=== PATIENT | male | born 1930 | race Caucasian/White ===

== ENCOUNTER → 2018-05-08 | Outpatient (CLI) | payer MEDICARE ==
[~2018-05-08] MED LIST: ALLO100T70 PO; ALPR-445 PO; ALPR-459 PO; AMOX-559 PO; ATEN-65 PO; AZIT-1 PO; AZIT-17 PO; CHOL200021 PO; CHOL500025 PO; CYAN1000 IM; CYAN100088 PO; CYCL10TA29 PO; DAR100 PO; DOXY-179 PO; DOXY-228 PO; FOLI-68 PO; FURO-45 PO; GABA-547 PO; GABA-549 PO; HYDR-385 PO; HYDR-393 PO; HYDR-4309 PO; IBUP-136 PO; INDO-23 PO; LEVO-85 PO; LIDO10VI16 INTRA-ART; LOR5 PO; LOR5/325 PO; LORA-629 PO; MELO-205 PO; MELO-207 PO; METH2.5T43 PO; METH4TAB66 PO; MIRT-22 PO; MIRT-27 PO; MONT10TA PO; MONT10TA4 PO; MORP-20 PO; NAPR220C12 PO; OMEP-125 PO; OMEP-137 PO; OMEP1CAP10 PO; OXYC-373 PO; OXYC-865 PO; OXYCODONE PO; PER PO; PRE10 PO; PRE5 PO; PRED-1 PO; PRED-420 PO; PRED20TA6 PO; SPIR25TA80 PO; TAMS0.4C70 PO; TRI40I IART; WARF3TAB14 PO; WARF5TAB23 PO; XANAX PO; [UNRECOGNIZED DRUG - CODE]; [UNRECOGNIZED DRUG - CODE] PO
--- NOTE | 2018-05-08 14:57 | RADIOLOGY IMAGING REPORT ---
FACILITY: [facility] PATIENT NAME: Gualberto Rush : 1930 MR: [id number] V: [id number] EXAM DATE: ORDERING PHYSICIAN: MARIA GUADALUPE BUI TECHNOLOGIST: Location: [facility] [place] Patient: Gualberto Rush : 1930 Visit/Account:[id number] Date of Sevice: 05/08/2018 Exam type: BONE SURVEY COMPLETE History: Staging/metastases. Primary not mentioned Comparison: None. Findings: There are severe degenerative changes of both shoulders and postoperative changes of the right should er Extensive vascular calcifications are noted in the thighs. There are moderate degenerative changes o f both knees There are severe spondylotic changes of the cervical spine most prominent from C3 through C7. There is osteopenia of the thoracic spine and an S-shaped scoliosis There are postsurgical changes from posterior lumbar interbody fusion at L4 and L5. There are modera te compression fractures of L1 and L2 and a mild compression fracture T12. Extensive spondylotic kendrick nges in the lumbar spine also noted. On the lateral view the skull is a small lucency projecting over the parietal bone and a possible kurtis ency over the frontal bone. Calcifications in the carotid siphons also noted. IMPRESSION: 1. Extensive degenerative changes and vascular calcifications as detailed above On the lateral view the skull is a small lucency projecting over the parietal bone possibly over the frontal bone. Report Dictated By: Kyra Valladares MD at 05/08/2018 2:48 PM Report E-Signed By: Kyra Valladares MD at 05/08/2018 2:53 PM WSN:[email or web address]
== END ==
LOC: RAD 13:50
PROVIDERS: ATTEND Internal Medicine Hematology
DX: M19.012 Primary osteoarthritis, left shoulder (principal); M19.011 Primary osteoarthritis, right shoulder; M47.892 Other spondylosis, cervical region; Z98.890 Other specified postprocedural states; I25.10 Atherosclerotic heart disease of native coronary artery without angina pectoris; M85.88 Other specified disorders of bone density and structure, other site; M41.84 Other forms of scoliosis, thoracic region; M47.896 Other spondylosis, lumbar region
CPT/HCPCS: 77075

== ENCOUNTER → 2018-05-11 | Outpatient (REF) | payer MEDICARE | LOC: ZZSENDIN 14:35 | PROVIDERS: ATTEND Internal Medicine Hematology | DX: R80.1 Persistent proteinuria, unspecified (principal) | CPT/HCPCS: 83883; 84156; 86335 ==

== ENCOUNTER 2018-05-21 12:37 | Outpatient (RCR) | payer MEDICARE ==
[2018-05-07 13:55] VITALS: BP 154/83
[2018-05-07 15:15] LABS: PLATELET COUNT, AUTOMATED 122 K/uL (150-450)
--- NOTE | 2018-05-07 18:28 | ONCOLOGY CONSULTATION ---
EVENT DATE: May 07, [address] Smith REASON FOR CONSULTATION Evaluation and management of post plasma cell dyscrasia. HEMATOLOGY/ONCOLOGY HISTORY Patient is an 87-year-old male who has been evaluated by for rheumatoid arthritis. Patient was found to have positive DEWAYNE and rheumatoid factor. 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 Patient was also found to have anemia, so he was referred for further evaluation and management. He denies any constitutional symptoms. PAST MEDICAL HISTORY 1. Neuropathy. 2. Allergic rhinitis. 3. Thoracic aortic aneurysm. 4. History of pulmonary embolism. 5. GERD. 6. Benign prostatic hypertrophy. 7. Gout. 8. Osteoarthritis. 9. Rheumatoid arthritis. 10. History of alcoholism. 11. Depression. PAST SURGICAL HISTORY 1. Cataract extraction. 2. Vasectomy. 3. Arthroscopy for rotator cuff times two and left rotator cuff times one. 4. Fracture repair of the hand. 5. Spinal surgery times three. SOCIAL HISTORY Patient is single with two sons and one daughter. He is retired from [employer] business. He is a never smoker. He used to drink years ago. FAMILY HISTORY Negative for cancer or blood diseases. CURRENT MEDICATIONS 1. Naproxen 220 mg p.r.n. for pain. 2. Methylprednisolone 4 mg as needed. ALLERGIES No known drug allergies. REVIEW OF SYSTEMS CONSTITUTIONAL: No appetite or weight change. No fever, chills or sweating. No recent infection. HEENT: Ears: No tinnitus or hearing problem. Nose: He has nasal discharge. Throat: No sore throat or mouth ulcers. Eyes: No diplopia or visual changes. RESPIRATORY: No shortness of breath. No cough, expectoration or hemoptysis. CARDIOVASCULAR: No chest pain, orthopnea, or paroxysmal nocturnal dyspnea (PND) . No edema. No palpitations. GASTROINTESTINAL: No nausea or vomiting. No diarrhea or constipation. No change in bowel movements. No heartburn or swallowing difficulties. No abdominal pain. No jaundice. No hematemesis, melena or rectal bleeding. GENITOURINARY: No hematuria or dysuria. MUSCULOSKELETAL: He has pain in the shoulders, wrists, ankles and knees. NEUROLOGICAL: No tingling or numbness in the hands or feet. No headaches or convulsions. HEMATOLOGIC/LYMPHATIC: No bleeding or easy bruising. He is weak, tired and fatigued. No enlarged lymph nodes. SKIN: No skin rash or lumps. PSYCHIATRIC: No anxiety or depression. PHYSICAL EXAMINATION GENERAL: Looks stable. Well-developed, well-nourished, and in no acute distress. VITAL SIGNS: Blood pressure 154/83, pulse 83 per minute, respirations 16 per minute, temperature 97 and pulse ox 91% on room air. HEENT: Head: Atraumatic. No sinus tenderness to palpation. Eyes: No icterus or conjunctivitis. Mouth and Throat: No oral thrush or mucositis. NECK: Supple. No cervical or supraclavicular lymphadenopathy. LUNGS: Clear to auscultation and percussion bilaterally. HEART: Regular rate and rhythm. No gallops, murmurs, clicks or rubs. ABDOMEN: Soft and lax. No tenderness. No hepatosplenomegaly. No masses. EXTREMITIES: No cyanosis, clubbing or edema. LYMPHATICS: No peripheral lymphadenopathy. NEUROLOGICAL: Conscious, alert and oriented times three. No focal motor or sensory deficits. PSYCHIATRIC: Mood and affect appear normal. SKIN: No skin rash, bruise or purpuric eruption. ASSESSMENT 1. 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 The patient has a neuropathy which could be related to that. Plasma cell dyscrasia could be due to multiple myeloma, MGUS, amyloidosis, cryoglobulinemia. I am planning to check a myeloma profile, and I am planning also to check 24-hour urine for urine protein immunoelectrophoresis and Bence- Hernandez protein. I am planning to get a skeletal bone survey to see if there are any lytic lesions to suggest the presence of multiple myeloma. I will see the patient after the above for further evaluation and management. 2. Anemia. Could be related to his plasma cell dyscrasia, but I am planning to do a basic workup for the anemia, so I am planning to check CBC, iron studies with ferritin, B12 folate, methylmalonic acid assay, serum protein immunoelectrophoresis, erythropoietin level, iron studies with ferritin. Further evaluation and management will depend on the cause of his anemia. 3. Peripheral neuropathy. PLAN 1. CBC. 2. Iron studies with ferritin. 3. B12 folate level. 4. Methylmalonic acid assay. 5. Myeloma profile. 6. Twenty-four hour urine for urine protein immunoelectrophoresis and Bence- Hernandez protein. 7. Patient to return after the above for further evaluation and management. 8. Patient is to contact us for any new concerns or complaints. SAMMYD
[~2018-05-21 12:37] MED LIST changes: -HYDR-4309 PO; +HYDR-653 PO
[2018-05-21 13:03] VITALS: BP 130/76
--- NOTE | 2018-05-21 16:23 | ONCOLOGY FOLLOW UP NOTE ---
EVENT DATE: May 21, 2018 DIAGNOSES 1. MGUS. 2. Anemia. 3. Peripheral neuropathy. CHIEF COMPLAINT Patient is here today for followup of his plasma cell dyscrasia. HEMATOLOGY/ONCOLOGY HISTORY Patient is an 87-year-old male who has been evaluated by for rheumatoid arthritis. Patient was found to have positive DEWAYNE and rheumatoid factor. 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 Patient was also found to have anemia, so he was referred for further evaluation and management. He denies any constitutional symptoms. Serum protein immunoelectrophoresis shows 0.84 g/dL IgG lambda. A skeletal bone survey showed extensive degenerative changes, but no lytic lesions. B12 folate methylmalonic acid assay all came back normal. Erythropoietin level was normal at 15. Serum ferritin was 77, TIBC 245, serum iron 99, iron saturation 40.4%. CBC showed white count 5.7, hemoglobin 12.8, hematocrit 36.4, platelets 122,000. HISTORY OF PRESENT ILLNESS Patient is here today for followup of his plasma cell dyscrasia. Patient is totally asymptomatic today, except having some fatigue. PAST MEDICAL HISTORY 1. Neuropathy. 2. Allergic rhinitis. 3. Thoracic aortic aneurysm. 4. History of pulmonary embolism. 5. GERD. 6. Benign prostatic hypertrophy. 7. Gout. 8. Osteoarthritis. 9. Rheumatoid arthritis. 10. History of alcoholism. 11. Depression. PAST SURGICAL HISTORY 1. Cataract extraction. 2. Vasectomy. 3. Arthroscopy for rotator cuff times two and left rotator cuff times one. 4. Fracture repair of the hand. 5. Spinal surgery times three. SOCIAL HISTORY Patient is single with two sons and one daughter. 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 He is a never smoker. He used to drink years ago. FAMILY HISTORY Negative for cancer or blood diseases. CURRENT MEDICATIONS 1. Naproxen 220 mg p.r.n. for pain. 2. Methylprednisolone 4 mg as needed. ALLERGIES No known drug allergies. REVIEW OF SYSTEMS CONSTITUTIONAL: No appetite or weight change. No fever, chills or sweating. No recent infection. HEENT: Ears: No tinnitus or hearing problem. Nose: No nasal discharge or epistaxis. Throat: No sore throat or mouth ulcers. Eyes: No diplopia or visual changes. RESPIRATORY: No shortness of breath. No cough, expectoration or hemoptysis. CARDIOVASCULAR: No chest pain, orthopnea, or paroxysmal nocturnal dyspnea (PND). No edema. No palpitations. GASTROINTESTINAL: No nausea or vomiting. No diarrhea or constipation. No change in bowel movements. No heartburn or swallowing difficulties. No abdominal pain. No jaundice. No hematemesis, melena or rectal bleeding. GENITOURINARY: No hematuria or dysuria. MUSCULOSKELETAL: He has pain in the shoulders, wrists, ankles and knees. NEUROLOGICAL: No tingling or numbness in the hands or feet. No headaches or convulsions. HEMATOLOGIC/LYMPHATIC: No bleeding or easy bruising. He is weak, tired and fatigued. No enlarged lymph nodes. SKIN: No skin rash or lumps. PSYCHIATRIC: No anxiety or depression. PHYSICAL EXAMINATION GENERAL: Looks stable. Well-developed, well-nourished, and in no acute distress. VITAL SIGNS: Blood pressure 130/76, pulse 67 per minute, respirations 16 per minute, temperature 96.9 and pulse ox 92% on room air. HEENT: Head: Atraumatic. No sinus tenderness to palpation. Eyes: No icterus or conjunctivitis. Mouth and Throat: No oral thrush or mucositis. NECK: Supple. No cervical or supraclavicular lymphadenopathy. LUNGS: Clear to auscultation and percussion bilaterally. HEART: Regular rate and rhythm. No gallops, murmurs, clicks or rubs. ABDOMEN: Soft and lax. No tenderness. No hepatosplenomegaly. No masses. EXTREMITIES: No cyanosis, clubbing or edema. LYMPHATICS: No peripheral lymphadenopathy. NEUROLOGICAL: Conscious, alert and oriented times three. No focal motor or sensory deficits. PSYCHIATRIC: Mood and affect appear normal. SKIN: No skin rash, bruise or purpuric eruption. LABORATORY DATA CBC showed white count 5.7, hemoglobin 12.8, hematocrit 36.4, platelets 122,000. Serum iron 99, TIBC 245, iron saturation 40.4%, ferritin 77. Erythropoietin level is 15. Vitamin B12, methylmalonic acid assay and folate are all normal. Serum protein immunoelectrophoresis showed monoclonal band of IgG lambda at 0.84 g/dL. Skeletal bone survey showed extensive degenerative changes, but no lytic lesions. ASSESSMENT 1. Plasma cell dyscrasia, most probably due to MGUS given that the patient has a small amount of IgG lambda at 0.84 g/dL by immunoelectrophoresis. A skeletal bone survey did not show any lytic bone lesions. I am planning to continue followup. I will see him four months with repeat myeloma profile at that time. At any time if the patient will have determination of his monoclonal protein band, I am planning to repeat the investigation and we will do a bone marrow aspiration biopsy at that time. The patient is happy and agreeable with the plan of management. 2. Anemia. Iron studies, B12, folate, methylmalonic acid, erythropoietin level all came back within the normal range. His hemoglobin was 12.8, hematocrit 36.4 which is very mild. I am planning to monitor with is next visit. 3. Peripheral neuropathy. PLAN 1. Continue followup. 2. Patient to return in four months with CBC, chem panel, LDH, uric acid and myeloma profile. 3. Patient is to contact us for any new concern or complaints. HENOK
== END 2018-08-04 ==
LOC: ONC 12:37
PROVIDERS: ATTEND Internal Medicine Hematology
DX: R80.1 Persistent proteinuria, unspecified (principal); D64.9 Anemia, unspecified; G62.9 Polyneuropathy, unspecified; M06.9 Rheumatoid arthritis, unspecified
CPT/HCPCS: 36415; 82232; 82607; 82668; 82728; 82746; 83540; 83550; 83615; 83883; 83921; 84550; 85025; 85045; 86334; G0463; 82040; 82247; 82310; 82374; 82435; 82565; 82947; 84075; 84132; 84155; 84295; 84450; 84460; 84520; 99202; 99212

== ENCOUNTER 2018-09-17 12:46 | Outpatient (RCR) | payer MEDICARE ==
[2018-09-08 12:40] VITALS: BP 133/86
[2018-09-08 12:53] LABS: PLATELET COUNT, AUTOMATED 225 K/uL (150-450)
[2018-09-17 12:59] VITALS: BP 133/77
[2018-09-17] MEDS ORDERED: IBUP-56 PO (13:03)
[2018-09-17] MEDS ORDERED: INFLUENZA VIRUS VAC 0.5ML SYR IM ONLY ONE (13:20)
--- NOTE | 2018-09-17 18:47 | [facility] ONCOLOGY NOTE ---
EVENT DATE: September 17, 2018 DIAGNOSES 1. Monoclonal gammopathy of undetermined significance. 2. Anemia. 3. Peripheral neuropathy. CHIEF COMPLAINT Patient is here today for followup of his plasma cell dyscrasia with MGUS. HEMATOLOGY/ONCOLOGY HISTORY Patient is an 87-year-old male who has been evaluated by for rheumatoid arthritis. Patient was found to have positive DEWAYNE and rheumatoid factor. During his evaluation, patient was also found to have a monoclonal protein of IgG lambda which could represent MGUS myeloma or myelodysplastic syndrome. Patient was also found to have anemia, so he was referred for further evaluation and management. He denies any constitutional symptoms. Serum protein immunoelectrophoresis shows 0.84 g/dL IgG lambda. A skeletal bone survey showed extensive degenerative changes, but no lytic lesions. B12, folate, methylmalonic acid assay all came back normal. Erythropoietin level was normal at 15. Serum ferritin was 77, TIBC 245, serum iron 99, iron saturation 40.4%. CBC showed white count 5.7, hemoglobin 12.8, hematocrit 36.4, platelets 122,000. HISTORY OF PRESENT ILLNESS Patient is here today for followup of his MGUS. He is complaining of runny nose and dry cough sometimes. He has pain in his back and knees from arthritis. He is weak, tired, and fatigued, but generally his general condition is stable. PAST MEDICAL HISTORY 1. Neuropathy. 2. Allergic rhinitis. 3. Thoracic aortic aneurysm. 4. History of pulmonary embolism. 5. GERD. 6. Benign prostatic hypertrophy. 7. Gout. 8. Osteoarthritis. 9. Rheumatoid arthritis. 10. History of alcoholism. 11. Depression. PAST SURGICAL HISTORY 1. Cataract extraction. 2. Vasectomy. 3. Arthroscopy for rotator cuff times two and left rotator cuff times one. 4. Fracture repair of the hand. 5. Spinal surgery times three. SOCIAL HISTORY Patient is single with two sons and one daughter. 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 He is a never smoker. He used to drink years ago. FAMILY HISTORY Negative for cancer or blood diseases. CURRENT MEDICATIONS 1. Naproxen 220 mg p.r.n. for pain. 2. Methylprednisolone 4 mg as needed. ALLERGIES No known drug allergies. REVIEW OF SYSTEMS CONSTITUTIONAL: No appetite or weight change. No fever, chills, or sweating. No recent infection. HEENT: Ears: No tinnitus or hearing problem. Nose: He has nasal discharge. No epistaxis. Throat: No sore throat or mouth ulcers. Eyes: No diplopia or visual changes. RESPIRATORY: No shortness of breath. He has a dry cough. No expectoration or hemoptysis. CARDIOVASCULAR: No chest pain, orthopnea, or paroxysmal nocturnal dyspnea (PND). No edema. No palpitations. GASTROINTESTINAL: No nausea or vomiting. No diarrhea or constipation. No change in bowel movements. No heartburn or swallowing difficulties. No abdominal pain. No jaundice. No hematemesis, melena, or rectal bleeding. GENITOURINARY: No hematuria or dysuria. MUSCULOSKELETAL: He has pain in his back and knees. NEUROLOGIC: No tingling or numbness in the hands or feet. No headaches or convulsions. HEMATOLOGIC/LYMPHATIC: No bleeding or easy bruising. He is weak, tired, and fatigued. No enlarged lymph nodes. SKIN: No skin rash or lumps. PSYCHIATRIC: No anxiety or depression. PHYSICAL EXAMINATION GENERAL: Looks stable. Well developed, well nourished, and in no acute distress. VITAL SIGNS: Blood pressure 133/77, pulse 72 per minute, respirations 16 per minute, temperature 96.6, pulse ox 94% on room air. HEENT: Head: Atraumatic. No sinus tenderness to palpation. Eyes: No icterus or conjunctivitis. Mouth and Throat: No oral thrush or mucositis. NECK: Supple. No cervical or supraclavicular lymphadenopathy. LUNGS: Clear to auscultation and percussion bilaterally. HEART: Regular rate and rhythm. No gallops, murmurs, clicks, or rubs. ABDOMEN: Soft and lax. No tenderness. No hepatosplenomegaly. No masses. EXTREMITIES: No cyanosis, clubbing, or edema. LYMPHATICS: No peripheral lymphadenopathy. NEUROLOGIC: Conscious, alert, and oriented times three. No focal motor or sensory deficits. PSYCHIATRIC: Mood and affect appear normal. SKIN: No skin rash, bruise, or purpuric eruption. DIAGNOSTIC DATA CBC showed white count 8.7, hemoglobin 14.4, hematocrit 42.7, platelets 225,000. Chem panel totally normal except chloride 109, carbon dioxide 20, creatinine 1.3, and uric acid 8.9. ASSESSMENT 1. Plasma cell dyscrasia, most probably due to monoclonal gammopathy of undetermined significance given that the patient had a small amount of IgG lambda at 0.84 g/dL by serum protein immunoelectrophoresis. A skeletal bone survey was negative for lytic bone lesions. His current serum protein immunoelectrophoresis shows monoclonal band of IgG lambda at 1.04. Quantitative hemoglobins were normal. Beta-2 microglobulin was high at 5. I am planning to continue followup. I will see him again in four months from now with CBC, chemistry panel, LDH, uric acid, and myeloma profile. If the patient has rising of his monoclonal protein, then will decide about further evaluation at that time. I explained that to the patient. He is agreeable to plan of management. 2. Peripheral neuropathy. PLAN 1. Continue followup. 2. Patient to return in four months with CBC, chem panel, LDH, uric acid, and myeloma profile. 3. Patient is to contact us for any new concern or complaints. SAMMYD
== END 2018-10-26 13:03 | disposition home or self-care (01) ==
LOC: ONC 12:46
PROVIDERS: ATTEND Internal Medicine Hematology
DX: R80.1 Persistent proteinuria, unspecified (principal); Z23 Encounter for immunization; G62.9 Polyneuropathy, unspecified; R53.83 Other fatigue; R05 Cough; R09.89 Other specified symptoms and signs involving the circulatory and respiratory systems
CPT/HCPCS: 36415; 82232; 83615; 83883; 84550; 85025; 86334; G0008; G0463; Q2037; 82040; 82247; 82310; 82374; 82435; 82565; 82947; 84075; 84132; 84155; 84295; 84450; 84460; 84520; 90674; 99212

== ENCOUNTER → 2019-02-05 | Outpatient (CLI) | payer MEDICARE ==
[~2019-02-05] MED LIST changes: +ACET-3017 PO; +CIPR-344 PO; +FAMO20TA28 PO; +FLUT16SP19 NS; +IBUP-56 PO; +IBUP800T37 PO; -MIRT-27 PO; +MIRT15TA11 PO
[2019-02-05 10:46] LABS: PLATELET COUNT, AUTOMATED 176 K/uL (150-450)
--- NOTE | 2019-02-05 10:53 | EKG ---
FACILITY: [facility] PATIENT NAME: LAUREN BONDS : [id number] MR: [id number] V: [id number] EXAM DATE: ORDERING PHYSICIAN: YINKA CARDOZA TECHNOLOGIST: ELIDIA Test Reason : PRE-OP Blood Pressure : / mmHG Vent. Rate : 071 BPM Atrial Rate : 071 BPM P-R Int : 126 ms QRS Dur : 100 ms QT Int : 404 ms P-R-T Axes : 012 -60 035 degrees QTc Int : 439 ms Sinus rhythm with marked sinus arrhythmia with occasional premature ventricular complexes Left axis deviation Abnormal ECG When compared with ECG of 05-JAN-2017 13:40, premature ventricular complexes are now present Questionable change in QRS duration Confirmed by YINKA CARDOZA ([id number]) on 02/10/2019 12:25:23 PM Referred By: BABITA Confirmed By:YINKA CARDOZA
--- NOTE | 2019-02-05 11:33 | RADIOLOGY IMAGING REPORT ---
FACILITY: [facility] [place] PATIENT NAME: Gualberto Rush : 1930 MR: [id number] V: [id number] EXAM DATE: ORDERING PHYSICIAN: YINKA CARDOZA TECHNOLOGIST: Location: [facility] [place] Patient: Gualberto Rush : 1930 Visit/Account:[id number] Date of Sevice: 02/05/2019 Exam type: CHEST PA LAT History: preop Comparison: January 05, 2017. Findings: The lungs are free of acute effusions, infiltrates or edema. Cardiac silhouette is normal in size. There is moderate ectasia the thoracic aorta.. Incompletely imaged are postsurgical changes lumbar s pine. There are postsurgical changes the right shoulder. A calcific density projects over the right side of the lower cervical spine. This could be a calcified thyroid nodule although other calcifica tions are included in the differential diagnosis IMPRESSION: 1. No evidence of acute pulmonary consolidation A calcification projects over the right side of the lower cervical spine. This could represent a shobha cified thyroid nodule although other calcified occasions are included in the differential diagnosis Report Dictated By: Kyra Valladares MD at 02/05/2019 11:26 AM Report E-Signed By: Kyra Valladares MD at 02/05/2019 11:28 AM WSN:[email or web address]
== END ==
LOC: LAB 10:15
PROVIDERS: ATTEND Internal Medicine
DX: Z01.818 Encounter for other preprocedural examination (principal); I71.2 Thoracic aortic aneurysm, without rupture; M06.9 Rheumatoid arthritis, unspecified
CPT/HCPCS: 36415; 71046; 81001; 82040; 82247; 82310; 82374; 82435; 82565; 82947; 84075; 84132; 84155; 84295; 84443; 84450; 84460; 84520; 85025; 85610; 85730

== ENCOUNTER 2019-02-08 04:10 | Observation (INO) | payer MEDICARE ==
[~2019-02-08] VITALS: Ht 170.2 cm; Wt 68.9 kg
[2019-02-08] VITALS (14 sets, daily range): BP systolic 88–139; BP diastolic 54–93
[~2019-02-08 04:10] MED LIST changes: -ACET-3017 PO; -CIPR-344 PO; -FAMO20TA28 PO; -IBUP800T37 PO; -OMEP-125 PO; +OMEP-126 PO
[2019-02-08] MEDS ORDERED: NEOMYCIN/POLYMYX/BACITR 30 GM TP ONE (06:50)
[2019-02-08] MEDS ORDERED: MINERAL OIL LIGHT 10 ML VIAL ONE (06:50)
[2019-02-08] MEDS ORDERED: NORMOSOL R SOLN(*) 1000 ML BAG 1,000 ML IV PRN (07:35)
[2019-02-08] MEDS ORDERED: FAMOTIDINE 20 MG TAB PO ONE (07:35)
[2019-02-08] MEDS ORDERED: LIDOCAINE/SOD BICARB 8.4% SYR ID ONE (07:35)
[2019-02-08] MEDS ORDERED: MIDAZOLAM 2 MG/2 ML VIAL IVP PRN (07:35)
[2019-02-08] MEDS ORDERED: GENTAMICIN(*) 80 MG/2 ML VIAL 160 MG in NS(*) 0.9% 100 ML BAG 100 ML IVPB ONE (07:35)
[2019-02-08] MEDS ORDERED: fentaNYL CITR 100 MCG/2 ML AMP ONE (08:06)
[2019-02-08] MEDS ORDERED: DEXAMETHASONE SOD 4 MG/ML VIAL ONE (08:07)
[2019-02-08] MEDS ORDERED: LIDOCAINE 2% IV 100 MG/5ML SYR ONE (08:08)
[2019-02-08] MEDS ORDERED: PROPOFOL EMUL(*) 10MG/ML 20 ML 20 ML ONE (08:08)
[2019-02-08] MEDS ORDERED: ceFAZolin(*) 1 GM VIAL 1 GM, GENTAMICIN(*) 80 MG/2 ML VIAL 60 MG in NS 0.9% IRRIGATION ... IR ONE (08:30)
[2019-02-08] MEDS ORDERED: LEVOFLOXACIN/D5W*500 MG/100 ML 100 ML IVPB ONE (09:15)
[2019-02-08] MEDS ORDERED: ONDANSETRON 4 MG/2 ML VIAL ONE (09:20)
[2019-02-08] MEDS ORDERED: LR(*) 1000 ML BAG 1,000 ML IV PRN (10:30)
[2019-02-08] MEDS ORDERED: ZOLPIDEM TARTRATE 5 MG TAB PO PRN (10:30)
[2019-02-08] MEDS ORDERED: FLUSH 10 ML SYR IVP PRN (10:30)
[2019-02-08] MEDS ORDERED: ONDANSETRON 4 MG/2 ML VIAL IVP PRN (10:30)
[2019-02-08] MEDS ORDERED: ACETAMIN/CODEINE #3 300-30 MG PO PRN (10:30)
--- NOTE | 2019-02-08 11:53 | OPERATIVE REPORT 1 ---
EVENT DATE: February 08, 2019 SURGEON: Chapo Sheth MD ANESTHESIOLOGIST: Contreras Conti MD ANESTHESIA: General. PREOPERATIVE DIAGNOSES 1. Balanitis. 2. Glanular adhesions. 3. Recurrent balanitis. POSTOPERATIVE DIAGNOSES 1. Balanitis. 2. Glanular adhesions. 3. Recurrent balanitis. PROCEDURE PERFORMED 1. Lysis of glanular adhesions. 2. Circumcision. DESCRIPTION OF PROCEDURE Under general anesthetic, the patient was prepped and draped in the supine position. The dorsal slit was made. The foreskin was retracted and there was noted to be some mucous and glanular adhesions around the tyson. These were lysed. The penis was re-prepped and draped. The ventral incision was incised down to the frenulum. The intermediate tissue bilaterally was trimmed. Bleeding was controlled with spike coagulation. The wound was irrigated and bathed with Betadine solution several times throughout the procedure. The mucosa was trimmed circumferentially and the penile skin was trimmed circumferentially. The mucosa and skin were reapproximated with interrupted 3-0 Chromic catgut suture ventrally and dorsally and tagged. The intermediate tissue was sutured bilaterally with interrupted 3-0 Chromic catgut suture. The bleeding appeared to be satisfactorily controlled with spike coagulation and the mucosa of the skin appeared to be reapproximated satisfactorily. There was no bleeding at conclusion of the procedure. Polysporin was placed around the circumcision. A light wrap was placed around the penis. Estimated blood loss was a few cc's. Patient tolerated the procedure satisfactorily and returned to the recovery room in satisfactory condition. This is an 87-year old white male complaining of phimosis, recurrent balanitis. Patient has had trouble keeping the foreskin and glans clean with irrigation and using a Q-tip. Medication failed to soften the skin and allow for retraction. Options were discussed and patient opted for circumcision and exploration to evaluate and treat any problems that need to be treated. 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 See operative note for details. The patient will be ready for discharge home with alert and functional. To force fluids 2L per day. Activities are restricted to careful ambulation. He is to continue his usual medications. Copy of instructions was given to the patient. Patient will be discharged home on Cipro, Pepcid, Motrin and Tylenol #3 therapy. He is to continue ice packs for now. Plan followup this coming Friday in the office. HENOK
[2019-02-08] MEDS ORDERED: NS(*) 0.9% 250 ML BAG 250 ML ONE (19:36)
[2019-02-08] MEDS: GENTAMICIN/NS 80 MG/100 ML PB 100 ML IVPB SCH (20:26)
[2019-02-08] MEDS: DOCUSATE SODIUM 100 MG CAP PO SCH (20:27)
[2019-02-08] MEDS: FAMOTIDINE 20 MG TAB PO SCH (20:27)
[2019-02-08] MEDS: NEOMYCIN/POLYMYX/BACITR OINT 1 PACKET TP SCH (20:27)
[2019-02-09 07:31] VITALS: BP 107/70
[2019-02-09] MEDS ORDERED: ACET-3017 PO (08:57)
[2019-02-09] MEDS ORDERED: FAMO20TA28 PO (08:57)
[2019-02-09] MEDS ORDERED: IBUP800T37 PO (08:58)
[2019-02-09] MEDS ORDERED: CIPR-344 PO (08:58)
[2019-02-09] MEDS ORDERED: LEVOFLOXACIN 500 MG TAB PO SCH (10:00)
[2019-02-09] MEDS: DOCUSATE SODIUM 100 MG CAP PO SCH (10:54)
[2019-02-09] MEDS: FAMOTIDINE 20 MG TAB PO SCH (10:54)
[2019-02-09] MEDS: NEOMYCIN/POLYMYX/BACITR OINT 1 PACKET TP SCH (10:55)
[2019-02-09] MEDS: GENTAMICIN/NS 80 MG/100 ML PB 100 ML IVPB SCH (10:55)
== END 2019-02-09 09:01 | disposition home or self-care (01) ==
LOC: OR 04:10 → MED 11:00
DX: N48.1 Balanitis (principal); Q55.8 Other specified congenital malformations of male genital organs
CPT/HCPCS: 54161; A9270; G0378; J1100; J1580; J1956; J2001; J2405; J2704; J3010; J7050

== ENCOUNTER 2019-03-10 16:17 | Outpatient (RCR) | payer MEDICARE ==
[~2019-03-10 16:17] MED LIST changes: +ACET-3017 PO; +CIPR-344 PO; +FAMO20TA28 PO; +IBUP800T37 PO
== END 2019-03-11 16:58 | disposition home or self-care (01) ==
LOC: ONC 16:17
PROVIDERS: ATTEND Internal Medicine Hematology
DX: Z02.9 Encounter for administrative examinations, unspecified (principal)

== ENCOUNTER → 2019-03-31 | Outpatient (CLI) | payer MEDICARE ==
--- NOTE | 2019-03-31 15:36 | RADIOLOGY IMAGING REPORT ---
FACILITY: [facility] PATIENT NAME: Gualberto Rush : 1930 MR: [id number] V: [id number] EXAM DATE: ORDERING PHYSICIAN: YINKA CARDOZA TECHNOLOGIST: Location: [facility] - [place] Patient: Gualberto Rush : 1930 Visit/Account:[id number] Date of Sevice: 03/31/2019 THYROID HISTORY: thyroid mass COMPARISON: None. FINDINGS: SIZE: Normal. Right lobe: 4.7 x 2.5 x 1.5 cm Left lobe: 4 x 1.3 x 1.2 cm Isthmus: mm PARENCHYMA: Heterogeneous NODULES: Right lobe: * There is a 9 mm cyst in the inferior aspect of the right lobe. There is a 6 mm partially cystic s eptated mass also the inferior right lobe Left lobe: * There is a 1 cm solid hypoechoic nodule in the mid left lobe Isthmus: * None discrete. VASCULARITY: Within normal limits. ADDITIONAL FINDINGS: None. IMPRESSION: Cystic nodules measuring up to 9 mm the right lobe 1 cm solid hypoechoic nodule mid left lobe. Six-month follow-up thyroid ultrasound recommended REFERENCE: 2015 [place] [employer] Management Guidelines for Adult Patients with Thyroid Nodules and D ifferentiated Thyroid Cancer: The [place] [employer] Guidelines Task Force on Thyroid Nodul es and Differentiated Thyroid Cancer. SONOGRAPHIC PATTERNS: * Benign: Purely cystic nodules (no solid component); estimated risk of malignancy <1 percent; no bi opsy recommended. * Very Low Suspicion: Spongiform or partially cystic nodules without any of the sonographic features described in low, intermediate, or high suspicion patterns; estimated risk of malignancy <3 percent; consider FNA at > 2 cm (Observation without FNA is also a reasonable option). * Low Suspicion: Isoechoic or hyperechoic solid nodule, or partially cystic nodule with eccentric so lid areas, without microcalcification, irregular margin or ETE (extra-thyroidal extension), or taller than wide shape; estimated risk of malignancy 5-10 percent; recommend FNA at >1.5 cm. * Intermediate Suspicion: Hypoechoic solid nodule with smooth margins without microcalcifications, E TE (extra-thyroidal extension), or taller than wide shape; estimated risk of malignancy 10-20 percent ; recommend FNA at > 1 cm. * High Suspicion: Solid hypoechoic nodule or solid hypoechoic component of a partially cystic nodule with one or more of the following features: irregular margins (infiltrative, microlobulated), microc alcifications, taller than wide shape, rim calcifications with small extrusive soft tissue component, evidence of ETE (extra-thyroidal extension); estimated risk of malignancy >70-90 percent; recommend FNA at > 1 cm. NOTES: * Although a sonographically suspicious subcentimeter thyroid nodule without evidence of extrathyroi racheal extension or sonographically suspicious lymph nodes may be observed with close sonographic follow -up rather than pursuing immediate FNA, patient age and preference may modify decision-making. A > 50% interval increase in nodule volume and/or development of new suspicious sonographic features are felt to be a valid reasons for potential re-aspiration of a nodule previously shown to have benig n FNA cytology. Report Dictated By: Kyra Valladares MD at 03/31/2019 3:25 PM Report E-Signed By: Kyra Valladares MD at 03/31/2019 3:30 PM WSN:[id number]
== END ==
LOC: US 07:16
PROVIDERS: ATTEND Internal Medicine
DX: E04.2 Nontoxic multinodular goiter (principal)
CPT/HCPCS: 76536